=== PATIENT | female | born 2000 ===

== ENCOUNTER 2023-07-29 02:32 | Emergency (ER) | payer SELFPAY ==
[~2023-07-29] VITALS: Ht 154.9 cm; Wt 71.4 kg
[2023-07-29 02:33] VITALS: BP 119/80; TEMP 97.4; O2SAT 100
== END 2023-07-29 04:57 | disposition left against medical advice (07) ==
LOC: M ED 02:32
DX: Z53.21 Procedure and treatment not carried out due to patient leaving prior to being seen by health care provider (principal)